=== PATIENT | female | born 1945 | race Caucasian/White ===

== ENCOUNTER 2025-08-19 18:14 | Inpatient (IN) | payer MEDICARE ==
[2025-08-19] MEDS ORDERED: Ondansetron 4 MG/2 ML SDV IV PRN (19:25)
[2025-08-19] MEDS ORDERED: Naloxone 0.4 MG/ML SDV IVPUSH PRN (19:35)
[2025-08-20 05:59] LABS: BASOPHILS ABSOLUTE AUTO 0.03 K/uL (0.00-0.10); BASOPHILS PERCENT AUTO 0.4 % (0.1-1.3); EOSINOPHILS PERCENT AUTO 0.1 % (0.0-5.4); IMMATURE GRAN ABSOLUTE AUTO 0.03 K/uL (0.00-0.23); IMMATURE GRAN PERCENT AUTO 0.4 % (0.0-0.7); LYMPHOCYTES ABSOLUTE AUTO 1.11 K/uL (0.8-3.3); LYMPHOCYTES PERCENT AUTO 15.0 % (11.4-47.7); MONOCYTES ABSOLUTE AUTO 0.63 K/uL (0.20-0.90); MONOCYTES PERCENT AUTO 8.5 % (3.3-12.6); NEUTROPHILS ABSOLUTE AUTO 5.57 K/uL (1.0-7.6); NEUTROPHILS PERCENT AUTO 75.6 % (40.0-78.1); PLATELET COUNT,PLT 197 K/uL (130-375); RED BLOOD CELL COUNT 3.20 M/uL (3.77-5.24); WHITE BLOOD CELL COUNT,WBC 7.4 K/uL (3.2-11.0)
[2025-08-20 06:01] LABS: EOSINOPHILS ABSOLUTE AUTO 0.01 K/uL (0.00-0.40)
[2025-08-20 06:17] LABS: BLOOD UREA NITROGEN,BUN 40.0 mg/dL (7-18); CARBON DIOXIDE,CO2 23.0 mmol/L (21-32); CHLORIDE,CL 111.0 mmol/L (100-108); CREATININE 1.6 mg/dL (0.6-1.0); EST CRCL DRUG DOSING (CG) 19.59 mL/min; ESTIMATED GFR 32.0 mL/min (>60); GLUCOSE RANDOM 81.0 mg/dL (74-106); POTASSIUM,K 4.6 mmol/L (3.6-5.2); SODIUM,NA 142.0 mmol/L (140-148)
[2025-08-21 05:49] LABS: BASOPHILS PERCENT AUTO 0.3 % (0.1-1.3); EOSINOPHILS ABSOLUTE AUTO 0.04 K/uL (0.00-0.40); EOSINOPHILS PERCENT AUTO 0.6 % (0.0-5.4); IMMATURE GRAN PERCENT AUTO 0.2 % (0.0-0.7); LYMPHOCYTES ABSOLUTE AUTO 2.00 K/uL (0.8-3.3); LYMPHOCYTES PERCENT AUTO 31.0 % (11.4-47.7); MONOCYTES ABSOLUTE AUTO 0.73 K/uL (0.20-0.90); MONOCYTES PERCENT AUTO 11.3 % (3.3-12.6); NEUTROPHILS ABSOLUTE AUTO 3.66 K/uL (1.0-7.6); NEUTROPHILS PERCENT AUTO 56.6 % (40.0-78.1); PLATELET COUNT,PLT 188 K/uL (130-375); RED BLOOD CELL COUNT 3.18 M/uL (3.77-5.24); WHITE BLOOD CELL COUNT,WBC 6.5 K/uL (3.2-11.0)
[2025-08-21 06:01] LABS: BASOPHILS ABSOLUTE AUTO 0.02 K/uL (0.00-0.10); IMMATURE GRAN ABSOLUTE AUTO 0.01 K/uL (0.00-0.23)
[2025-08-21 06:04] LABS: BLOOD UREA NITROGEN,BUN 32.0 mg/dL (7-18); CARBON DIOXIDE,CO2 24.0 mmol/L (21-32); CHLORIDE,CL 112.0 mmol/L (100-108); CREATININE 1.5 mg/dL (0.6-1.0); EST CRCL DRUG DOSING (CG) 20.89 mL/min; ESTIMATED GFR 35.0 mL/min (>60); GLUCOSE RANDOM 82.0 mg/dL (74-106); POTASSIUM,K 4.6 mmol/L (3.6-5.2); SODIUM,NA 143.0 mmol/L (140-148)
[2025-08-21] MEDS: Iopamidol 612 MG/ML 50 ML SDV PO ONE (12:00)
[2025-08-21] MEDS: Iopamidol 612 MG/ML 100 ML Bottle IV SCH (13:45)
[2025-08-21] MEDS ORDERED: fentaNYL 250 MCG/5 ML SDV ONE (16:25)
[2025-08-21] MEDS ORDERED: Propofol 200 MG/20 ML SDV ONE (16:25)
[2025-08-21] MEDS ORDERED: Ondansetron 4 MG/2 ML SDV ONE (16:25)
[2025-08-21] MEDS ORDERED: Glycopyrrolate 0.2 MG/ML 5 ML MDV ONE (16:25)
[2025-08-21] MEDS ORDERED: Succinylcholine 200 MG/10 ML MDV ONE (16:25)
[2025-08-21] MEDS ORDERED: Dexamethasone 4 MG/ML SDV ONE (16:25)
[2025-08-21] MEDS: Bupivacaine 0.25%/EPINEPHrine 1:200,000 30 ML SDV ONE (17:41)
[2025-08-21] MEDS ORDERED: ePHEDrine 50 MG/ML SDV ONE (18:16)
[2025-08-21 19:57] LABS: BASOPHILS PERCENT AUTO 0.2 % (0.1-1.3); EOSINOPHILS PERCENT AUTO 0.1 % (0.0-5.4); IMMATURE GRAN ABSOLUTE AUTO 0.06 K/uL (0.00-0.23); IMMATURE GRAN PERCENT AUTO 0.6 % (0.0-0.7); LYMPHOCYTES ABSOLUTE AUTO 2.08 K/uL (0.8-3.3); LYMPHOCYTES PERCENT AUTO 21.7 % (11.4-47.7); MONOCYTES ABSOLUTE AUTO 0.28 K/uL (0.20-0.90); MONOCYTES PERCENT AUTO 2.9 % (3.3-12.6); NEUTROPHILS ABSOLUTE AUTO 7.13 K/uL (1.0-7.6); NEUTROPHILS PERCENT AUTO 74.5 % (40.0-78.1); PLATELET COUNT,PLT 175 K/uL (130-375); RED BLOOD CELL COUNT 3.14 M/uL (3.77-5.24); WHITE BLOOD CELL COUNT,WBC 9.6 K/uL (3.2-11.0)
[2025-08-21 20:00] LABS: BASOPHILS ABSOLUTE AUTO 0.02 K/uL (0.00-0.10); EOSINOPHILS ABSOLUTE AUTO 0.01 K/uL (0.00-0.40)
[2025-08-21 20:15] LABS: BLOOD UREA NITROGEN,BUN 28.0 mg/dL (7-18); CARBON DIOXIDE,CO2 22.0 mmol/L (21-32); CHLORIDE,CL 109.0 mmol/L (100-108); CREATININE 1.6 mg/dL (0.6-1.0); EST CRCL DRUG DOSING (CG) 19.59 mL/min; ESTIMATED GFR 32.0 mL/min (>60); GLUCOSE RANDOM 162.0 mg/dL (74-106); POTASSIUM,K 4.2 mmol/L (3.6-5.2); SODIUM,NA 141.0 mmol/L (140-148)
[2025-08-21 20:16] LABS: INR 1.1
[2025-08-22 01:59] LABS: PLATELET COUNT,PLT 151 K/uL (130-375); RED BLOOD CELL COUNT 2.83 M/uL (3.77-5.24); WHITE BLOOD CELL COUNT,WBC 13.6 K/uL (3.2-11.0)
[2025-08-22 02:21] LABS: BAND ABSOLUTE MAN 0.82 K/uL; BAND PERCENT MAN 6 % (5-11); LYMPHOCYTES ABSOLUTE MAN 0.14 K/uL (0.8-3.3); LYMPHOCYTES PERCENT MAN 1 % (24-44); MONOCYTES ABSOLUTE MAN 0.68 K/uL (0.20-0.90); MONOCYTES PERCENT MAN 5 % (2-6); NEUTROPHILS ABSOLUTE MAN 11.97 K/uL (1.0-7.6); SEG NEUTROPHILS PERCENT MAN 88 % (36-66)
[2025-08-22 05:50] LABS: PLATELET COUNT,PLT 161 K/uL (130-375); RED BLOOD CELL COUNT 2.83 M/uL (3.77-5.24); WHITE BLOOD CELL COUNT,WBC 15.3 K/uL (3.2-11.0)
[2025-08-22 06:05] LABS: BLOOD UREA NITROGEN,BUN 33.0 mg/dL (7-18); CARBON DIOXIDE,CO2 18.0 mmol/L (21-32); CHLORIDE,CL 111.0 mmol/L (100-108); CREATININE 2.0 mg/dL (0.6-1.0); EST CRCL DRUG DOSING (CG) 16.76 mL/min; ESTIMATED GFR 24.0 mL/min (>60); GLUCOSE RANDOM 146.0 mg/dL (74-106); POTASSIUM,K 4.7 mmol/L (3.6-5.2); SODIUM,NA 142.0 mmol/L (140-148)
[2025-08-22 06:09] LABS: BAND ABSOLUTE MAN 0.61 K/uL; BAND PERCENT MAN 4 % (5-11); LYMPHOCYTES ABSOLUTE MAN 0.15 K/uL (0.8-3.3); LYMPHOCYTES PERCENT MAN 1 % (24-44); MONOCYTES ABSOLUTE MAN 0.46 K/uL (0.20-0.90); MONOCYTES PERCENT MAN 3 % (2-6); NEUTROPHILS ABSOLUTE MAN 14.08 K/uL (1.0-7.6); SEG NEUTROPHILS PERCENT MAN 92 % (36-66)
[2025-08-22] MEDS: Furosemide 20 MG/2 ML VIAL IVPUSH ONE (09:31)
[2025-08-22] MEDS: Piperacillin/Tazobactam/Dext 4.5 GM in Premix Bag 1 BAG IV SCH (11:49)
[2025-08-22 14:00] LABS: PLATELET COUNT,PLT 140.0 K/uL (130-375); RED BLOOD CELL COUNT 2.43 M/uL (3.77-5.24); WHITE BLOOD CELL COUNT,WBC 16.9 K/uL (3.2-11.0)
[2025-08-23 05:20] LABS: PLATELET COUNT,PLT 135 K/uL (130-375); RED BLOOD CELL COUNT 2.26 M/uL (3.77-5.24); WHITE BLOOD CELL COUNT,WBC 13.9 K/uL (3.2-11.0)
[2025-08-23 05:51] LABS: BAND ABSOLUTE MAN 0.70 K/uL; BAND PERCENT MAN 5 % (5-11); LYMPHOCYTES ABSOLUTE MAN 1.39 K/uL (0.8-3.3); LYMPHOCYTES PERCENT MAN 10 % (24-44); MONOCYTES ABSOLUTE MAN 0.83 K/uL (0.20-0.90); MONOCYTES PERCENT MAN 6 % (2-6); NEUTROPHILS ABSOLUTE MAN 10.98 K/uL (1.0-7.6); SEG NEUTROPHILS PERCENT MAN 79 % (36-66)
[2025-08-23 07:58] LABS: BLOOD UREA NITROGEN,BUN 15.0 mg/dL (7-18); CARBON DIOXIDE,CO2 17.0 mmol/L (21-32); CHLORIDE,CL 116.0 mmol/L (100-108); CREATININE 2.3 mg/dL (0.6-1.0); ESTIMATED GFR 21.0 mL/min (>60); GLUCOSE RANDOM 82.0 mg/dL (74-106); POTASSIUM,K 4.2 mmol/L (3.6-5.2); SODIUM,NA 141.0 mmol/L (140-148)
[2025-08-23 08:00] LABS: EST CRCL DRUG DOSING (CG) 14.57 mL/min
[2025-08-24 06:30] LABS: BASOPHILS ABSOLUTE AUTO 0.04 K/uL (0.00-0.10); BASOPHILS PERCENT AUTO 0.3 % (0.1-1.3); EOSINOPHILS ABSOLUTE AUTO 0.10 K/uL (0.00-0.40); EOSINOPHILS PERCENT AUTO 0.7 % (0.0-5.4); IMMATURE GRAN ABSOLUTE AUTO 0.12 K/uL (0.00-0.23); IMMATURE GRAN PERCENT AUTO 0.9 % (0.0-0.7); LYMPHOCYTES ABSOLUTE AUTO 1.15 K/uL (0.8-3.3); LYMPHOCYTES PERCENT AUTO 8.2 % (11.4-47.7); MONOCYTES ABSOLUTE AUTO 0.55 K/uL (0.20-0.90); MONOCYTES PERCENT AUTO 3.9 % (3.3-12.6); NEUTROPHILS ABSOLUTE AUTO 12.07 K/uL (1.0-7.6); NEUTROPHILS PERCENT AUTO 86.0 % (40.0-78.1); PLATELET COUNT,PLT 143 K/uL (130-375); RED BLOOD CELL COUNT 2.32 M/uL (3.77-5.24); WHITE BLOOD CELL COUNT,WBC 14.0 K/uL (3.2-11.0)
[2025-08-24 06:46] LABS: BLOOD UREA NITROGEN,BUN 32.0 mg/dL (7-18); CARBON DIOXIDE,CO2 18.0 mmol/L (21-32); CHLORIDE,CL 114.0 mmol/L (100-108); CREATININE 2.0 mg/dL (0.6-1.0); EST CRCL DRUG DOSING (CG) 16.76 mL/min; ESTIMATED GFR 24.0 mL/min (>60); GLUCOSE RANDOM 63.0 mg/dL (74-106); POTASSIUM,K 3.5 mmol/L (3.6-5.2); SODIUM,NA 143.0 mmol/L (140-148)
[2025-08-24] MEDS: Dextrose 5%-0.9% NaCl with KCl 1,000 ML IV SCH (10:46)
[2025-08-25 06:07] LABS: BASOPHILS PERCENT AUTO 0.2 % (0.1-1.3); EOSINOPHILS ABSOLUTE AUTO 0.18 K/uL (0.00-0.40); EOSINOPHILS PERCENT AUTO 1.8 % (0.0-5.4); IMMATURE GRAN ABSOLUTE AUTO 0.06 K/uL (0.00-0.23); IMMATURE GRAN PERCENT AUTO 0.6 % (0.0-0.7); LYMPHOCYTES ABSOLUTE AUTO 0.85 K/uL (0.8-3.3); LYMPHOCYTES PERCENT AUTO 8.6 % (11.4-47.7); MONOCYTES ABSOLUTE AUTO 0.44 K/uL (0.20-0.90); MONOCYTES PERCENT AUTO 4.5 % (3.3-12.6); NEUTROPHILS ABSOLUTE AUTO 8.31 K/uL (1.0-7.6); NEUTROPHILS PERCENT AUTO 84.3 % (40.0-78.1); PLATELET COUNT,PLT 176 K/uL (130-375); RED BLOOD CELL COUNT 2.41 M/uL (3.77-5.24); WHITE BLOOD CELL COUNT,WBC 9.9 K/uL (3.2-11.0)
[2025-08-25 06:09] LABS: BASOPHILS ABSOLUTE AUTO 0.02 K/uL (0.00-0.10)
[2025-08-25 06:24] LABS: BLOOD UREA NITROGEN,BUN 28.0 mg/dL (7-18); CREATININE 1.9 mg/dL (0.6-1.0); EST CRCL DRUG DOSING (CG) 17.64 mL/min; ESTIMATED GFR 26.0 mL/min (>60); GLUCOSE RANDOM 131.0 mg/dL (74-106)
[2025-08-25 06:49] LABS: CARBON DIOXIDE,CO2 16.0 mmol/L (21-32); CHLORIDE,CL 115.0 mmol/L (100-108); POTASSIUM,K 3.3 mmol/L (3.6-5.2); SODIUM,NA 143.0 mmol/L (140-148)
[2025-08-25] MEDS: Potassium Chloride 20 MEQ Tab.ER PO ONE (11:32)
[2025-08-25] MEDS: Potassium Chloride 20 MEQ Tab.ER PO SCH (21:03)
[2025-08-26] MEDS: Heparin Sodium 5,000 Units/ML Vial SUBCUT SCH (05:42)
[2025-08-26 06:22] LABS: BASOPHILS PERCENT AUTO 0.2 % (0.1-1.3); EOSINOPHILS ABSOLUTE AUTO 0.34 K/uL (0.00-0.40); EOSINOPHILS PERCENT AUTO 4.0 % (0.0-5.4); IMMATURE GRAN ABSOLUTE AUTO 0.05 K/uL (0.00-0.23); IMMATURE GRAN PERCENT AUTO 0.6 % (0.0-0.7); LYMPHOCYTES ABSOLUTE AUTO 1.10 K/uL (0.8-3.3); LYMPHOCYTES PERCENT AUTO 12.8 % (11.4-47.7); MONOCYTES ABSOLUTE AUTO 0.51 K/uL (0.20-0.90); MONOCYTES PERCENT AUTO 6.0 % (3.3-12.6); NEUTROPHILS ABSOLUTE AUTO 6.55 K/uL (1.0-7.6); NEUTROPHILS PERCENT AUTO 76.4 % (40.0-78.1); PLATELET COUNT,PLT 206 K/uL (130-375); RED BLOOD CELL COUNT 2.78 M/uL (3.77-5.24); WHITE BLOOD CELL COUNT,WBC 8.6 K/uL (3.2-11.0)
[2025-08-26 06:24] LABS: BASOPHILS ABSOLUTE AUTO 0.02 K/uL (0.00-0.10)
[2025-08-26 06:43] LABS: BLOOD UREA NITROGEN,BUN 29.0 mg/dL (7-18); CHLORIDE,CL 117.0 mmol/L (100-108); CREATININE 1.9 mg/dL (0.6-1.0); EST CRCL DRUG DOSING (CG) 17.57 mL/min; ESTIMATED GFR 26.0 mL/min (>60); GLUCOSE RANDOM 85.0 mg/dL (74-106); POTASSIUM,K 4.0 mmol/L (3.6-5.2); SODIUM,NA 143.0 mmol/L (140-148)
[2025-08-26 06:54] LABS: CARBON DIOXIDE,CO2 15.0 mmol/L (21-32)
[2025-08-27 06:50] LABS: BLOOD UREA NITROGEN,BUN 31.0 mg/dL (7-18); CARBON DIOXIDE,CO2 18.0 mmol/L (21-32); CHLORIDE,CL 117.0 mmol/L (100-108); CREATININE 2.1 mg/dL (0.6-1.0); EST CRCL DRUG DOSING (CG) 15.9 mL/min; ESTIMATED GFR 23.0 mL/min (>60); GLUCOSE RANDOM 84.0 mg/dL (74-106); POTASSIUM,K 4.8 mmol/L (3.6-5.2); SODIUM,NA 143.0 mmol/L (140-148)
== END 2025-08-27 17:21 | disposition home health service (06) | DRG 330 ==
LOC: JP.MS 18:14 → JP.ICU 08-21 17:45 → JP.MS 08-24 11:26
PROVIDERS: ADMIT Surgery; ATTEND Surgery
PROC: 0DSE0ZZ Reposition Large Intestine, Open Approach (ICD-10-PCS; principal; 2025-08-19)
DX: K56.2 Volvulus (principal); D62 Acute posthemorrhagic anemia; E87.20 Acidosis, unspecified; N17.9 Acute kidney failure, unspecified; N39.0 Urinary tract infection, site not specified; F02.83 Dementia in other diseases classified elsewhere, unspecified severity, with mood disturbance; F02.84 Dementia in other diseases classified elsewhere, unspecified severity, with anxiety; F01.B0 Vascular dementia, moderate, without behavioral disturbance, psychotic disturbance, mood disturbance, and anxiety; K46.9 Unspecified abdominal hernia without obstruction or gangrene; D72.829 Elevated white blood cell count, unspecified; E87.6 Hypokalemia; J30.9 Allergic rhinitis, unspecified; H91.90 Unspecified hearing loss, unspecified ear; H54.7 Unspecified visual loss; K59.00 Constipation, unspecified; K44.9 Diaphragmatic hernia without obstruction or gangrene; N18.9 Chronic kidney disease, unspecified; I12.9 Hypertensive chronic kidney disease with stage 1 through stage 4 chronic kidney disease, or unspecified chronic kidney disease; M19.90 Unspecified osteoarthritis, unspecified site; G30.9 Alzheimer's disease, unspecified; F02.80 Dementia in other diseases classified elsewhere, unspecified severity, without behavioral disturbance, psychotic disturbance, mood disturbance, and anxiety; G43.909 Migraine, unspecified, not intractable, without status migrainosus; D64.9 Anemia, unspecified; E61.1 Iron deficiency; E53.8 Deficiency of other specified B group vitamins; Z85.3 Personal history of malignant neoplasm of breast; Z98.890 Other specified postprocedural states; Z98.891 History of uterine scar from previous surgery; Z90.10 Acquired absence of unspecified breast and nipple; Z88.8 Allergy status to other drugs, medicaments and biological substances; Z91.040 Latex allergy status; Z88.1 Allergy status to other antibiotic agents; Z86.73 Personal history of transient ischemic attack (TIA), and cerebral infarction without residual deficits; Z98.51 Tubal ligation status; Z98.49 Cataract extraction status, unspecified eye; Z87.891 Personal history of nicotine dependence; Z79.899 Other long term (current) drug therapy
CPT/HCPCS: 00840-QZ; 36415; 74177; 74177-26; 80048; 83605; 85018; 85025; 85027; 85610; 94667; 97110-GP; 97116-GP; 97161-GP; 99232; 99238; A9270-GY; J0330; J0690; J0696; J1100; J1171; J1596; J1644; J1938; J2405; J2470; J2543; J2704; J2710; J3010; J3480; J3490; J7030; J7040; Q9967